=== PATIENT | male | born 1960 | race Two or more races ===

== ENCOUNTER 2021-09-04 06:24 | Day surgery (SDC) | payer OTHER | END 2021-09-04 13:20 | disposition home or self-care (01) | LOC: AMB-ENDOS 06:24 | PROVIDERS: ATTEND Colon & Rectal Surgery | DX: D12.3 Benign neoplasm of transverse colon (principal); D12.4 Benign neoplasm of descending colon; D12.5 Benign neoplasm of sigmoid colon; K64.8 Other hemorrhoids ==